=== PATIENT | female | born 1935 | race Caucasian/White ===

== ENCOUNTER 2016-12-14 11:51 | Emergency (ER) | payer OTHER ==
[2016-12-14 13:44] LABS: HEMOGLOBIN 14.5 gm/dl (12.3-15.3); RED BLOOD COUNT 4.43 M/UL (4.00-5.10); WHITE BLOOD COUNT 11.2 K/UL (4.5-11.0)
[2016-12-14 14:04] LABS: BUN/CREATININE RATIO 24 (0-10)
== END 2016-12-14 16:30 | disposition home or self-care (01) ==
LOC: ER1 11:51
PROVIDERS: Specialist/Technologist Athletic Trainer
DX: R42 Dizziness and giddiness (principal); K25.5 Chronic or unspecified gastric ulcer with perforation; E03.9 Hypothyroidism, unspecified
CPT/HCPCS: 36415; 70450; 80053; 81001; 82550; 82553; 83874; 84439; 84443; 84484; 85025; 85610; 85730; 93005; 99284; J7040

== ENCOUNTER → 2016-12-16 | Outpatient (CLI) | payer OTHER | LOC: ECHO 13:30 | DX: R06.02 Shortness of breath (principal); I10 Essential (primary) hypertension | CPT/HCPCS: ECHO; 36415; 85379; 93306; 93880 ==

== ENCOUNTER → 2016-12-29 | Outpatient (CLI) | payer OTHER | LOC: RT 14:27 | DX: R00.2 Palpitations (principal); I10 Essential (primary) hypertension | CPT/HCPCS: 93270 ==

== ENCOUNTER → 2017-01-27 | Outpatient (CLI) | payer OTHER ==
[~2017-01-27] VITALS: Ht 147.3 cm; Wt 48.5 kg
== END ==
LOC: OPSV 09:00
DX: M81.0 Age-related osteoporosis without current pathological fracture (principal)
CPT/HCPCS: 96372

== ENCOUNTER → 2020-12-10 | Outpatient (CLI) | payer OTHER ==
[~2020-12-10] MED LIST: AUGMENTIN 875-1 EACH PO; CALCIUM600 MG PO; CRESTOR5 MG PO; DESYREL 50 MG T50 MG PO; ECOTRIN81 MG PO; FISH OIL CONCE1 EAC1 PO; PRINIVIL20 MG PO; PROLIA INJ60 MG/1 ML SC; RESTASIS 0.05%1 EACH OP; SYNTHROID 25 M25 MCG PO; THERAGRAN M TAB1 EA PO; ZANTAC150 MG PO; [UNRECOGNIZED DRUG - OTHER]
== END ==
LOC: KOH-I 14:48
DX: R05 Cough (principal); M25.551 Pain in right hip
CPT/HCPCS: 71046; 73502

== ENCOUNTER → 2021-10-07 | Outpatient (CLI) | payer OTHER | LOC: RT 09:33 | DX: I10 Essential (primary) hypertension (principal); R00.1 Bradycardia, unspecified; I45.10 Unspecified right bundle-branch block; R94.31 Abnormal electrocardiogram [ECG] [EKG] | CPT/HCPCS: 93005 ==